=== PATIENT | male | born 1955 | race Asian ===

== ENCOUNTER 2016-12-29 18:06 | Emergency (ER) | payer OTHER ==
--- NOTE | 2016-12-29 18:33 | CPEKG ---
Heart Rate: 62 RR Interval: 968 P-R Interval: 152 QRSD Interval: 100 QT Interval: 416 QTC Interval: 423 P [place]: 62 QRS [place]: 44 T Wave [place]: 30 EKG Severity - ABNORMAL ECG - EKG Impression: SINUS RHYTHM EKG Impression: LEFT VENTRICULAR HYPERTROPHY Electronically Signed By: Adama Carlson 29-Dec-2016 21:21:23
[2016-12-29] MEDS ORDERED: LORazepam 2 MG/ML INJ IVP ONE (19:03)
[2016-12-29 19:07] LABS: % IMMATURE GRANULYOCYTES 1.5 % (0.0-1.1); ABSOLUTE IMMATURE GRANULOCYTES 0.13 10^3/uL (0.00-0.10); ADD DIFF? NO; ADD MORPH? NO; ADD SCAN? NO; ATYPICAL LYMPHOCYTE FLAG 10 (0-99); FRAGMENT RBC FLAG 0 (0-99); HEMATOCRIT 42.1 % (40.0-51.0); HEMOGLOBIN 14.7 g/dL (13.7-17.5); LEFT SHIFT FLG 50 (0-99); LIPEMIA HEMOLYSIS FLAG 90 (0-99); MEAN CELL HEMOGLOBIN 28.7 pg (27.9-34.1); MEAN CELL HEMOGLOBIN CONCENTR. 34.9 g/dL (32.4-36.7); MEAN CELL VOLUME 82.2 fL (81.5-99.8); MEAN PLATELET VOLUME 10.5 fL (8.7-11.7); PLATELET CLUMPS FLAG 0 (0-99); PLATELET COUNT 166 10^3/uL (150-400); RED BLOOD CELL COUNT 5.12 10^6/uL (4.40-6.38); RED CELL DISTRIBUTION WIDTH 12.6 % (11.5-15.2)
[2016-12-29] MEDS ORDERED: ONDANSETRON 4 MG/2 ML VIAL IVP ONE (19:21)
[2016-12-29] MEDS ORDERED: MECLIZINE HCL 25 MG TAB PO ONE ×2 (19:21→21:07)
--- NOTE | 2016-12-29 19:24 | EDPHY ---
H & P Time Seen by Provider: 12/29/16 18:43 HPI/ROS: Chief complaint. dizziness HPI. 61-year-old male presents with complaint of dizziness and room spinning and nausea vomiting for 1 hour. He has a history of vertigo. This is typical symptoms for him. No illness or recent head injury. Symptoms are worse with trying to sit up or stand up. He has a sense of the room spinning which then causes nausea and vomiting. ROS Constitutional. no fever/chills, no weakness Eyes. no problems with vision ENT. no sore throat, no nasal drainage Cardiovascular. No chest pain Respiratory. slight shortness of breath Abdominal. Nausea and vomiting . no problems urinating MS. no calf pain/swelling, no neck/back pain, no joint pain Skin. no rash Lymph. no swollen glands Neuro. Dizziness Past Medical/Surgical History: vertigo, hypertension Social History: , nonsmoker, no alcohol Smoking Status: Never smoked Physical Exam: General Appearance: Alert well-developed male moderate distress vital signs are stable Eyes: Pupils equal and round no pallor or injection. No nystagmus ENT, Mouth: Mucous membranes are moist. Respiratory: There are no retractions, lungs are clear to auscultation. Cardiovascular: Regular rate and rhythm. Gastrointestinal: Abdomen is soft and nontender, no masses, bowel sounds normal. Neurological: Awake and alert, sensory and motor exams grossly normal. Skin: Warm and dry, no rashes. Musculoskeletal: Neck is supple nontender. Extremities symmetrical, full range of motion. Psychiatric: Patient is oriented X 3, there is no agitation. Constitutional: Initial Vital Signs Temperature (C) 36.3 C 12/29/16 18:12 Heart Rate 68 12/29/16 18:12 Respiratory Rate 24 H 12/29/16 18:12 Blood Pressure 164/86 H 12/29/16 18:12 O2 Sat (%) 100 12/29/16 18:12 O2 Delivery Mode Room Air Allergies/Adverse Reactions: ENVIRONMENTAL Allergy (Uncoded 12/29/16 18:11) Home Medications: Medication Instructions Recorded Lisinopril 12/29/16 Losartan Potassium 12/29/16 Meclizine HCl [Meclizine HCl 25 mg 25 mg PO QID PRN #14 tab 12/29/16 (RX,OTC)] Ondansetron Odt [Zofran Odt] 4 mg PO Q4PRN PRN #4 tab 12/29/16 Medical Decision Making - Diagnostics EKG Interpretation: EKG interpreted by me shows normal sinus rhythm with normal interval and axis. QRS is normal there is slight ST elevation in V2.. No arrhythmia. Rate is 62 Imaging Results: Imaging Impressions Chest X-Ray 12/29/16 19:02 Impression: Limited study, with mild peribronchial thickening that could be related to bronchitis or mild fluid overload. If symptoms persist and clinical suspicion warrants, consider departmental PA and lateral chest when the patient is able. Chest x-ray interpreted by me as negative for acute findings Procedures: IV normal saline., monitor While in x-ray the patient has dizziness and vomiting with moving his head and trying to sit up Patient is given meclizine, Zofran, Ativan IV Re-evaluation 8:15 p.m. patient feeling better ED Course/Re-evaluation: Re-evaluation 8:50 p.m.--patient's symptoms have resolved The patient, his , and son and I discussed imaging lab results. We discussed treatment plan including criteria for return and importance of follow- up and further evaluation. He expresses understanding and agreement Differential Diagnosis: This patient appears to have vertigo. He has had it previously. It has responded to usual medication for treatment of vertigo. I considered acute coronary syndrome as well. - Data Points Laboratory Results: Laboratory Results 12/29/16 19:01 12/29/16 19:01 12/29/16 12/29/16 12/29/16 19:02 19:01 19:01 WBC 8.72 10^3/uL 10^3/uL (3.80-9.50) RBC 5.12 10^6/uL 10^6/uL (4.40-6.38) Hgb 14.7 g/dL g/dL (13.7-17.5) Hct 42.1 % % (40.0-51.0) MCV 82.2 fL fL (81.5-99.8) MCH 28.7 pg pg (27.9-34.1) MCHC 34.9 g/dL g/dL (32.4-36.7) RDW 12.6 % % (11.5-15.2) Plt Count 166 10^3/uL 10^3/uL (150-400) MPV 10.5 fL fL (8.7-11.7) Neut % (Auto) 77.1 % H % (39.3-74.2) Lymph % (Auto) 13.5 % L % (15.0-45.0) [place] % (Auto) 5.8 % % (4.5-13.0) Eos % (Auto) 1.5 % % (0.6-7.6) Baso % (Auto) 0.6 % % (0.3-1.7) Nucleat RBC Rel Count 0.0 % % (0.0-0.2) Absolute Neuts (auto) 6.72 10^3/uL H 10^3/uL (1.70-6.50) Absolute Lymphs (auto) 1.18 10^3/uL 10^3/uL (1.00-3.00) Absolute Monos (auto) 0.51 10^3/uL 10^3/uL (0.30-0.80) Absolute Eos (auto) 0.13 10^3/uL 10^3/uL (0.03-0.40) Absolute Basos (auto) 0.05 10^3/uL 10^3/uL (0.02-0.10) Absolute Nucleated RBC 0.00 10^3/uL 10^3/uL (0-0.01) Immature Gran % 1.5 % H % (0.0-1.1) Immature Gran # 0.13 10^3/uL H 10^3/uL (0.00-0.10) D-Dimer < 0.27 ug/mLFEU ug/mLFEU (0.00-0.50) Sodium 138 mEq/L mEq/L (134-144) Potassium 4.1 mEq/L mEq/L (3.5-5.2) Chloride 102 mEq/L mEq/L (97-110) Carbon Dioxide 21 mEq/l L mEq/l (22-31) Anion Gap 15 mEq/L mEq/L (8-16) BUN 27 mg/dL H mg/dL (7-23) Creatinine 0.7 mg/dL mg/dL (0.7-1.3) Estimated GFR > 60 Glucose 126 mg/dL H mg/dL (70-100) Calcium 10.1 mg/dL mg/dL (8.5-10.4) Troponin I < 0.012 ng/mL ng/mL (0-0.034) NT-Pro-B Natriuret Pep 20 pg/mL pg/mL (0-125) Medications Given: Discontinued Medications Lorazepam (Ativan Injection) 0.5 mg IVP EDNOW ONE Stop: 12/29/16 19:04 Last Admin: 12/29/16 19:25 Dose: 0.5 mg Meclizine HCl (Meclizine Hcl) 25 mg PO EDNOW ONE Stop: 12/29/16 19:22 Last Admin: 12/29/16 19:50 Dose: 25 mg Ondansetron HCl (Zofran) 4 mg IVP EDNOW ONE Stop: 12/29/16 19:22 Last Admin: 12/29/16 19:50 Dose: 4 mg Departure - Departure Disposition: Home, Routine, Self-Care Clinical Impression: Vertigo Condition: Good Instructions: Vertigo (ED) Additional Instructions: Meclizine using 1 pill every 6-8 hours as needed for dizziness. Zofran using 1 pill every 3-4 hours if needed for nausea vomiting. Return for worsening dizziness. Recheck in 2 days if not improved Referrals: Dafne Park MD [Primary Care Provider] - 2-3 days, if not improved Prescriptions: Meclizine HCl [Meclizine HCl 25 mg (RX,OTC)] 25 mg PO QID PRN #14 tab PRN Reason: Dizziness Ondansetron Odt [Zofran Odt] 4 mg PO Q4PRN PRN #4 tab PRN Reason: Nausea/Vomiting, Use 1st
[2016-12-29 20:01] LABS: ANION GAP 15 mEq/L (8-16); CALCIUM 10.1 mg/dL (8.5-10.4); CARBON DIOXIDE 21 mEq/l (22-31); CHLORIDE 102 mEq/L (97-110); CREATININE 0.7 mg/dL (0.7-1.3); GLOMERULAR FILTRATION RATE > 60; GLUCOSE 126 mg/dL (70-100); POTASSIUM 4.1 mEq/L (3.5-5.2); SODIUM 138 mEq/L (134-144)
[2016-12-29 20:12] LABS: TROPONIN I < 0.012 ng/mL (0-0.034)
[2016-12-29] MEDS ORDERED: ONDANSETRON 4MG PREPACK#2 BTL TAKEHOME ONE (21:06)
[2016-12-29 21:26] VITALS: BP 127/84; PULSE 76; RESP 16; TEMP 97.9; O2SAT 96
== END 2016-12-29 21:24 | disposition home or self-care (01) ==
DX: R42 Dizziness and giddiness (principal); I10 Essential (primary) hypertension
CPT/HCPCS: 96374; J2060; J2405

== ENCOUNTER → 2016-12-29 | Outpatient (CLI) | payer OTHER | LOC: BMCIMAGING 09:01 | PROVIDERS: ATTEND Internal Medicine | DX: I65.23 Occlusion and stenosis of bilateral carotid arteries (principal) ==

== ENCOUNTER 2017-01-28 08:01 | Emergency (ER) | payer OTHER ==
[2017-01-28] MEDS ORDERED: DIAZEPAM 5 MG TAB PO ONE (08:30)
[2017-01-28] MEDS ORDERED: ONDANSETRON DISINTEGRATING 4 MG TAB PO ONE (08:30)
--- NOTE | 2017-01-28 09:25 | EDPHY ---
H & P Stated Complaint: N/V & dizzy (Vertigo) Time Seen by Provider: 01/28/17 08:03 HPI/ROS: CHIEF COMPLAINT: Chronic vertigo HISTORY OF PRESENT ILLNESS: The patient presents to the ED with an acute exacerbation of chronic vertigo. The patient has been using meclizine. His primary care provider recently started him on oral steroids which she has been tapering over the past several days. The patient developed nausea and worsening vertigo today. He has no complaints of peripheral weakness. The patient denies headache, the patient denies neck pain. The patient denies any additional complaints. REVIEW OF SYSTEMS: A comprehensive 10 point review of systems is otherwise negative aside from elements mentioned in the history of present illness. Source: Patient Exam Limitations: No limitations - Personal History Current Tetanus/Diphtheria Vaccine: Unsure Current Tetanus Diphtheria and Acellular Pertussis (TDAP): Unsure - Medical/Surgical History Hx Asthma: No Hx Chronic Respiratory Disease: No Hx Diabetes: No Hx Cardiac Disease: No Hx Renal Disease: No Hx Cirrhosis: No Hx Alcoholism: No Hx HIV/AIDS: No Hx Splenectomy or Spleen Trauma: No Other PMH: High chol, vertigo/htn - Social History Smoking Status: Never smoked - Physical Exam Exam: General Appearance: Alert, no distress Eyes: Mild horizontal nystagmus noted ENT, Mouth: Dry mucous membranes Respiratory: There are no retractions, lungs are clear to auscultation Cardiovascular: Regular rate and rhythm Gastrointestinal: Abdomen is soft and nontender, no masses, bowel sounds normal Neurological: A&O, normal motor function, normal sensory exam, normal cranial nerves Skin: Warm and dry, no rashes Musculoskeletal: Neck is supple nontender Extremities: symmetrical, full range of motion Constitutional: Initial Vital Signs Temperature (C) 36.4 C 01/28/17 08:04 Heart Rate 61 01/28/17 08:04 Respiratory Rate 14 01/28/17 08:04 Blood Pressure 153/77 H 01/28/17 08:04 O2 Sat (%) 98 01/28/17 08:04 O2 Delivery Mode Room Air Allergies/Adverse Reactions: ENVIRONMENTAL Allergy (Uncoded 12/29/16 18:11) Home Medications: Medication Instructions Recorded Lisinopril 12/29/16 Losartan Potassium 12/29/16 Meclizine HCl [Meclizine HCl 25 mg 25 mg PO QID PRN #14 tab 12/29/16 (RX,OTC)] Ondansetron Odt [Zofran Odt] 4 mg PO Q4PRN PRN #4 tab 12/29/16 Diazepam [Valium 5 MG (*)] 5 mg PO BID PRN #15 tab 01/28/17 Ondansetron Odt [Zofran Odt] 4 mg PO Q4PRN PRN #20 tab 01/28/17 Medical Decision Making ED Course/Re-evaluation: The patient presents to the ED with typical peripheral vertigo. The patient is currently on steroids and meclizine. The patient is still having symptoms. He received a oral dose of Valium and Zofran in the emergency department. The patient had serial examinations performed by myself. He was reassessed at 9:30 a.m.. Differential Diagnosis: Differential diagnosis considered includes peripheral vertigo, central vertigo, labyrinthitis - Data Points Medications Given: Discontinued Medications Diazepam (Valium) 5 mg PO EDNOW ONE Stop: 01/28/17 08:31 Last Admin: 01/28/17 08:37 Dose: 5 mg Ondansetron HCl (Zofran Odt) 4 mg PO EDNOW ONE Stop: 01/28/17 08:31 Last Admin: 01/28/17 08:34 Dose: 4 mg Departure - Departure Disposition: Home, Routine, Self-Care Clinical Impression: Vertigo Condition: Good Instructions: Vertigo (ED) Additional Instructions: 1. Please use Valium as needed for symptoms of vertigo. 2. Zofran as needed for nausea. 3. Please follow up with the specialist, Dr. Adama Haney, you have been referred to for further evaluation of your ongoing symptoms. Referrals: Adama Haney MD [Medical Doctor] - As per Instructions
[2017-01-28 10:05] VITALS: BP 142/85; PULSE 63; RESP 16; TEMP 97.9; O2SAT 94
== END 2017-01-28 10:06 | disposition home or self-care (01) ==
DX: R42 Dizziness and giddiness (principal); I10 Essential (primary) hypertension

== ENCOUNTER → 2017-07-14 | Outpatient (CLI) | payer OTHER ==
--- NOTE | 2017-07-19 14:16 | CPEEG ---
[f rep st] ELECTROENCEPHALOGRAM DATE OF STUDY: 07/14/2017 DATE OF INTERPRETATION: 07/19/2017. INTERPRETATION: Normal EEG during wakefulness and sleep. There were no potentially epileptogenic abnormalities present in the recording. REPORT: This EEG contains 10 Hz alpha to the posterior head regions. There was no abnormal activation at rest, during photic stimulation or hyperventilation. The patient became drowsy and fell asleep during the study. During drowsiness, the patient had bitemporal theta transients, maximal left. This is a normal drowsy pattern. There was no abnormal activation during drowsiness, sleep, or during times of arousal. /[id number]/MODL MTDD
== END ==
LOC: FCPNEURO 13:05
PROVIDERS: ATTEND Psychiatry & Neurology Neurology
DX: R42 Dizziness and giddiness (principal)